=== PATIENT | female | born 1985 | race African-American/Black ===

== ENCOUNTER 2016-07-03 02:51 | Inpatient (IN) | payer BC ==
[2016-07-03] VITALS (11 sets, daily range): BP systolic 106–127; RESP 14–25; TEMP 97.6–98.6; BMI 36.4
[~2016-07-03] VITALS: Ht 177.8 cm; Wt 115.2 kg
[2016-07-03] MEDS ORDERED: FAMOTIDINE 20 MG INJ IV ONE ×2 (10:10→12:50)
[2016-07-03] MEDS ORDERED: METOCLOPRAMIDE 10 MG/2 ML VIAL IV PUSH ONE ×2 (10:10→12:50)
[2016-07-03] MEDS ORDERED: CEFAZOLIN 3,000 MG in SODIUM CHLORIDE 0.9% 100 ML IV ONE (10:10)
[2016-07-03] MEDS ORDERED: PHENYLEPHRINE 10 MG/ML VIAL IV ONE (10:45)
[2016-07-03] MEDS: LACT RINGERS 1,000 ML IV SCH (11:33)
[2016-07-03] MEDS ORDERED: MORPHINE 2 MG/ML SYR IV PRN ×2 (12:50)
[2016-07-03] MEDS ORDERED: BUTORPHANOL 1 MG/ML VIAL IV PRN (12:50)
[2016-07-03] MEDS ORDERED: DILAUDID 1 MG/ML AMP IV PRN (12:50)
[2016-07-03] MEDS ORDERED: LACT RINGERS 1,000 ML IV SCH ×2 (12:50→14:15)
[2016-07-03] MEDS ORDERED: SALINE FLUSH 10 ML FLUSH PRN (12:50)
[2016-07-03] MEDS ORDERED: DIPHENHYDRAMINE 50 MG/ML VIAL IV PRN (12:50)
[2016-07-03] MEDS ORDERED: NALOXONE 0.4 MG/ML AMP IV PRN (12:50)
[2016-07-03] MEDS ORDERED: MORPHINE 4 MG/ML SYR IV PRN ×2 (12:50)
[2016-07-03] MEDS ORDERED: MEPERIDINE 25 MG/ML IV PRN (12:50)
[2016-07-03] MEDS ORDERED: OXYCODONE 5 MG TAB PO PRN (12:50)
[2016-07-03] MEDS ORDERED: ONDANSETRON 4 MG VIAL IV PRN ×3 (12:50→14:15)
[2016-07-03] MEDS ORDERED: PROMETHAZINE 25 MG/ML VIAL IV PRN (12:50)
[2016-07-03] MEDS ORDERED: MEASLES,MUMPS,RUBELLA VAC SUBQ.VACC ONE (14:15)
[2016-07-03] MEDS ORDERED: TDaP 0.5 ML VIAL IM.VACC ONE (14:15)
[2016-07-03] MEDS ORDERED: ACETAMINOPHEN 1,000 MG/100 ML IV ONE (16:20)
[2016-07-03] MEDS: KETOROLAC 30 MG/ML VIAL IV SCH (17:38)
[2016-07-03] MEDS: METHYLERGONOVINE 0.2 MG TAB PO SCH (17:38)
[2016-07-03] MEDS: SALINE FLUSH 10 ML FLUSH SCH (20:00)
[2016-07-03] MEDS: OXYTOCIN 15 UNITS/250 ML NS 250 ML IV SCH (22:22)
[2016-07-04] VITALS (7 sets, daily range): BP systolic 109–123; RESP 18–24; TEMP 98.3–99
[2016-07-04] MEDS: METHYLERGONOVINE 0.2 MG TAB PO SCH ×3 (00:02→12:09)
[2016-07-04] MEDS: KETOROLAC 30 MG/ML VIAL IV SCH ×3 (00:02→12:09)
[2016-07-04] MEDS: OXYTOCIN 15 UNITS/250 ML NS 250 ML IV SCH (04:05)
[2016-07-04] MEDS: SODIUM CHLORIDE 0.9% FLUSH BAG 500 ML IV SCH (06:00)
[2016-07-04] MEDS: SALINE FLUSH 10 ML FLUSH SCH ×2 (07:22→20:00)
[2016-07-04] MEDS ORDERED: SODIUM CHLORIDE 0.9% 500 ML IV ONE (08:35)
[2016-07-04] MEDS: LACT RINGERS 1,000 ML IV SCH (09:26)
[2016-07-04] MEDS: Ibuprofen 600 MG TAB PO SCH ×2 (12:00→18:15)
[2016-07-04] MEDS: MAG HYDROX 30 ML UDC PO SCH ×2 (16:49→23:22)
[2016-07-05] MEDS: Ibuprofen 600 MG TAB PO SCH ×3 (00:10→12:05)
[2016-07-05 05:45] VITALS: BP_SYST 139; TEMP 98.1
[2016-07-05] MEDS: MAG HYDROX 30 ML UDC PO SCH (08:50)
[2016-07-05] MEDS: SALINE FLUSH 10 ML FLUSH SCH (08:52)
[2016-07-05 09:51] VITALS: BP_SYST 122; TEMP 98.3
[2016-07-05 09:52] VITALS: RESP 16
[2016-07-05] MEDS: SODIUM CHLORIDE 0.9% FLUSH BAG 500 ML IV SCH (10:04)
[2016-07-05 13:37] VITALS: BP_SYST 111; TEMP 98.6
[2016-07-05 13:38] VITALS: RESP 20
[2016-07-05 13:42] VITALS: BP_SYST 111; RESP 20; TEMP 98.6
== END 2016-07-05 14:48 | disposition home or self-care (01) | DRG 766 ==
LOC: LD 09:54 → OB 17:00
PROVIDERS: ADMIT Obstetrics & Gynecology Reproductive Endocrinology; ATTEND Obstetrics & Gynecology Reproductive Endocrinology
PROC: 10D00Z1 Extraction of Products of Conception, Low, Open Approach (ICD-10-PCS; principal; 2016-07-03)
DX: O34.29 Maternal care due to uterine scar from other previous surgery (principal); Z3A.37 37 weeks gestation of pregnancy; Z37.0 Single live birth
CPT/HCPCS: 82803; 85025; 86850; 86900; 86901